=== PATIENT | female | born 1990 | race African-American/Black ===

== ENCOUNTER 2017-02-18 10:11 | Inpatient (IN) ==
--- NOTE | 2017-02-18 12:54 | Ultrasound Report ---
US OB biophys profile Indication: Evaluation of amniotic fluid index and position. History of deceleration. Comparison: None. Technique: Using transcutaneous probe, routine biophysical profile was performed. Ultrasound images were captured and stored. Biophysical variables including breathing, gross body movements, tone, and qualitative amniotic fluid volume scored. Findings: Each of the above physical variables were graded at +2 for a total of +8. The fetus lies in vertex position. Heart activity is present with a heart rate of 126 beats per minute. The amniotic fluid index is 11.22cm. Impression: 1. biophysical profile score 8; normal with low risk for chronic asphyxia. 02/18/2017 12:50 PM PROCEDURE INTERPRETED AT [facility] DEPARTMENT OF RADIOLOGY Final Report Signed by: Dr. Ambrose Thakkar
[2017-02-18] MEDS ORDERED: ONDANSETRON 4 MG/2 ML VIAL IV PRN (19:08)
[2017-02-18] MEDS ORDERED: BUTORPHANOL 1 MG/ML VIAL IV PRN (19:08)
[2017-02-18 19:36] LABS: Basophils % 0.1 % (0.0-0.8); Hematocrit 37.5 VOL% (35.7-47.0); Hemoglobin 12.9 GM/DL (12.0-16.0); Immature Granulocytes % 0.4 %; Immature Granulocytes Absolute 0.04 #; Lymphocytes # 1.2 10*3/uL (1.4-4.0); Lymphocytes % 12.3 % (21.3-54.2); Mean Corpuscular HGB Conc 34.4 GM/DL (32-36); Mean Corpuscular Hemoglobin 30 PG (27-34); Mean Corpuscular Volume 87.6 FL (87-102); Mean Platelet Volume 10.4 FL (9.6-12.0); Monocytes # 0.3 10*3/uL (0.11-0.8); Monocytes % 2.8 % (1.7-12.7); Neutrophils # 8.5 10*3/uL (1.4-7.4); Neutrophils % 84.4 % (38.7-73.9); Platelet Count 200 T/CUMM (130-400); Red Blood Count 4.28 MC/CUMM (3.8-5.5); Red Cell Distribution Width 13.3 % (9.3-17.3); White Blood Count 10.1 T/CUMM (4-12)
[2017-02-18] MEDS ORDERED: hydrOXYzine HCL 25 MG/1 ML VIAL IM PRN (19:37)
[2017-02-18] MEDS ORDERED: diphenhydrAMINE 50 MG/1 ML VIAL IV PRN ×2 (19:37)
[2017-02-18] MEDS ORDERED: ONDANSETRON 4 MG/2 ML VIAL IV ONE (19:37)
[2017-02-18] MEDS ORDERED: PROMETHAZINE 25 MG/1 ML VIAL IM ONE (19:37)
[2017-02-18] MEDS ORDERED: ePHEDrine 50 MG/ML AMP IV PRN (19:37)
[2017-02-18] MEDS ORDERED: fentaNYL 2 MCG/ROPIV 0.2% EPID 150 ML EPIDURAL SCH (19:37)
[2017-02-18] MEDS ORDERED: FAMOTIDINE 20 MG/2 ML VIAL IV ONE (19:41)
[2017-02-18] MEDS ORDERED: CITRIC ACID/SODIUM CITRATE 30 ML UDCUP PO ONE (19:41)
[2017-02-18] MEDS: LACTATED RINGERS 1,000 ML IV SCH ×2 (19:51→21:30)
[2017-02-18] MEDS ORDERED: BUTORPHANOL 2 MG/ML VIAL IV PRN (19:52)
--- NOTE | 2017-02-18 19:58 | OB/GYN History & Physical ---
History of Present Illness Chief complaint: contractions History of present illness: Ms. Angeles is a 26 year old female at 38 weeks who came in this morning with contractions and was only fingertip dilated. She was katiuska adn we kept her for observation and she progress to 4 cm and her pain increased . 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 - Antepartum / Post Antepartum Exam Cervix - Dilatation: 4-5 Effacement: 100 Station: -2 Presentation: vertex Heart Rate: cat 2 [place]: every 5 mins - Respiratory Respiratory exam: Absent: accessory muscle use - Cardiovascular Cardiovascular exam: Present: regular rate and rhythm - GI/Abdominal GI/Abdominal exam: Present: other (gravid) - Extremities Exam Extremities exam: Absent: calf tenderness - Neurological Exam Neurological exam: Present: alert, oriented X3 - Psychiatric Psychiatric exam: Present: normal affect Assessment and Plan (1) Status: Acute Assessment and plan: IUP at 38 weeks in active labor . admit to L&D Current Visit: Yes Qualifiers: Weeks of gestation: 38 weeks Qualified Code(s): Z3A.38 - 38 weeks gestation of Results - Labs CBC & BMP: 02/18/17 19:20
[2017-02-18 20:27] LABS: Alanine Aminotransferase 18 U/L (13-56); Albumin 3.2 G/DL (3.4-5.0); Alkaline Phosphatase 73 U/L (45-117); Aspartate Amino Transferase 13 U/L (0-37); Bilirubin,Total < 0.39 MG/DL (0.2-1.0); Blood Urea Nitrogen 6 MG/DL (7-18); Calcium 9.1 MG/DL (8.5-10.1); Glucose 88 MG/DL (74-106); Osmolality,Calculated 273.5 MOS/KG (273-304); Potassium 3.7 MMOL/L (3.5-5.1); Sodium 139 MMOL/L (136-145); Total Protein 7.2 G/DL (6.4-8.3)
[2017-02-18] MEDS ORDERED: OXYTOCIN/LR 20 UNIT/1,000 ML BAG IV SCH (20:30)
[2017-02-18] MEDS ORDERED: LIDOCAINE 1% 50 ML VIAL ONE (23:00)
[2017-02-18] MEDS ORDERED: miSOPROStol 200 MCG TABLET ONE (23:01)
[2017-02-18] MEDS ORDERED: OXYTOCIN/LR 20 UNIT/1,000 ML BAG IV ONE (23:46)
[2017-02-18] MEDS ORDERED: DIPH/TET/ACEL PERT BOOSTER VACCINE 0.5 ML VIAL IM ONE (23:46)
[2017-02-18] MEDS ORDERED: LANOLIN 50% CREAM 0.3 OZ TUBE TOP PRN (23:46)
[2017-02-18] MEDS ORDERED: BENZOCAINE 20%/MENTHOL 0.5% SPRAY 56 GM CAN TOP PRN (23:46)
[2017-02-18] MEDS ORDERED: HYDROCORTISONE 2.5% RECTAL CREAM 30 GM TUBE TOP PRN (23:46)
[2017-02-18] MEDS ORDERED: MEASLES/MUMPS/RUBELLA VACCINE 0.5 ML VIAL SUBCUT ONE (23:46)
[2017-02-18] MEDS ORDERED: ACETAMINOPHEN 325 MG TABLET PO PRN (23:46)
[2017-02-18] MEDS ORDERED: IBUPROFEN 800 MG TABLET PO PRN (23:46)
[2017-02-18] MEDS ORDERED: WITCH HAZEL PADS 100/JAR TOP PRN (23:46)
[2017-02-18] MEDS ORDERED: RHO(D) IMMUNE GLOBULIN 300 MCG SYRINGE IM ONE (23:46)
[2017-02-18] MEDS ORDERED: BISACODYL 10 MG SUPP RECTAL PRN (23:46)
[2017-02-18] MEDS ORDERED: oxyCODONE/ACETAMINOPHEN 5-325 MG TABLET PO PRN (23:46)
--- NOTE | 2017-02-18 23:48 | Operative Note ---
Date of procedure: 02/18/17 Pre-op diagnosis: IUP at 38 weeks in labor Post-op diagnosis: same Procedure: The patient presented and progressed to completely dilated and she pushed and a right medial lateral episiotomy was performed and once that was performed the delivered in OP presentation which with a loose body cord which was easily manipulated with the delivery of the . Apgars were 8 and 9 weight was 5 lbs. 11 oz. and it was an male. The right medial lateral episiotomy was repaired in the usual fashion without any complications. The placenta delivered spontaneously. Sponge lap and instrument counts were correct 3. Anesthesia: epidural Surgeon / Physician: Rochelle Allen Estimated blood loss: other (200) Condition: stable Disposition: post procedure unit Results - Labs CBC & BMP: 02/18/17 19:20 02/18/17 19:20 Discharge Plan - Discharge Medications No Action Vits #90/Iron Fum/FA [ Formula Tablet] 1 each PO DAILY - Follow Up or Referral - Forms/Instructions
[2017-02-19 00:49] LABS: Apearance,Urine Slightly Hazy (Clear); Bilirubin,Urine Negative (Negative); Blood, Urine Small mg/dL (Negative); Glucose,Urine (UA) Negative (Negative); Hyaline Casts,Urine 6 /LPF (0-3); Ketones,Urine 80 mg/dL (Negative); Mucus,Urine Moderate /LPF (Occasional); Nitrite,Urine Negative (Negative); Protein,Urine 30 MG/DL; RBC,Urine 4 /HPF (0-4); Squamous Epithelial Cell,Urine Occasional /HPF (0-10); Urine Color Yellow (Yellow); Urine Specific Gravity 1.024 (1.001-1.035); Urine Urobilinogen < 2.0 EU/DL (0.2-1.0); WBC,Urine <1 /HPF (0-6)
[2017-02-19 07:04] LABS: Basophils % 0.1 % (0.0-0.8); Hematocrit 34.8 VOL% (35.7-47.0); Hemoglobin 11.9 GM/DL (12.0-16.0); Immature Granulocytes % 0.4 %; Immature Granulocytes Absolute 0.07 #; Mean Corpuscular HGB Conc 34.2 GM/DL (32-36); Mean Corpuscular Hemoglobin 30 PG (27-34); Mean Corpuscular Volume 88.8 FL (87-102); Mean Platelet Volume 10.6 FL (9.6-12.0); Monocytes # 1.5 10*3/uL (0.11-0.8); Monocytes % 7.9 % (1.7-12.7); Neutrophils # 14.9 10*3/uL (1.4-7.4); Neutrophils % 80.6 % (38.7-73.9); Platelet Count 186 T/CUMM (130-400); Red Blood Count 3.92 MC/CUMM (3.8-5.5); Red Cell Distribution Width 13.2 % (9.3-17.3); White Blood Count 18.5 T/CUMM (4-12)
[2017-02-19] MEDS: DOCUSATE SODIUM 100 MG CAPSULE PO SCH ×2 (08:32→20:45)
[2017-02-19] MEDS: oxyCODONE/ACETAMINOPHEN 5-325 MG TABLET PO PRN ×2 (08:33→20:45)
--- NOTE | 2017-02-19 11:29 | OB/GYN Progress Note ---
Assessment and Plan (1) Status: Acute Assessment and plan: IUP at 38 weeks in active labor . admit to L&D Current Visit: Yes Qualifiers: Weeks of gestation: 38 weeks Qualified Code(s): Z3A.38 - 38 weeks gestation of (2) Vaginal delivery Status: Acute Assessment and plan: PPD#1 s/p SAVD doing well . 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 Her bleeding is under control as well as her pain. 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 Absent: guarding, rebound - Extremities Exam Extremities exam: Absent: calf tenderness - Neurological Exam Neurological exam: Present: alert, oriented X3 - Psychiatric Psychiatric exam: Present: normal affect, normal mood Results - Labs CBC & BMP: 02/19/17 06:33 02/18/17 19:20
[2017-02-20 07:03] LABS: Basophils % 0.2 % (0.0-0.8); Eosinophils # 0.1 10*3/uL (0.0-0.87); Eosinophils % 0.5 % (0.00-10.9); Hematocrit 35.8 VOL% (35.7-47.0); Immature Granulocytes % 0.4 %; Immature Granulocytes Absolute 0.05 #; Lymphocytes # 2.6 10*3/uL (1.4-4.0); Lymphocytes % 21.5 % (21.3-54.2); Mean Corpuscular HGB Conc 33.5 GM/DL (32-36); Mean Corpuscular Hemoglobin 30 PG (27-34); Mean Corpuscular Volume 88.4 FL (87-102); Mean Platelet Volume 10.7 FL (9.6-12.0); Monocytes # 0.8 10*3/uL (0.11-0.8); Monocytes % 6.3 % (1.7-12.7); Neutrophils # 8.5 10*3/uL (1.4-7.4); Neutrophils % 71.1 % (38.7-73.9); Platelet Count 194 T/CUMM (130-400); Red Blood Count 4.05 MC/CUMM (3.8-5.5); Red Cell Distribution Width 13.4 % (9.3-17.3)
[2017-02-20 08:04] VITALS: BP 127/78
--- NOTE | 2017-02-20 09:13 | Anesthesia Post-Op ---
Anesthesia Post OP - Post Ansesthetic Evaluation Patient seen in post op: Yes Resp: within normal limits CV: within normal limits Mental: within normal limits Temp: within normal limits [id number]: within normal limits Nausea and Vomiting: within normal limits Pain: within normal limits
[2017-02-20] MEDS: DOCUSATE SODIUM 100 MG CAPSULE PO SCH (09:26)
--- NOTE | 2017-02-20 10:39 | OB/GYN Progress Note ---
Assessment and Plan (1) Vaginal delivery Status: Acute Assessment and plan: PPD#2 s/p SAVD doing well . 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 - Constitutional Vitals: Vital Signs Temp Pulse Resp BP Pulse Ox 02/20/17 07:30 97.2 F L 63 18 127/78 100 02/20/17 03:57 97.6 F 63 18 128/61 99 02/20/17 02:00 18 02/19/17 23:57 98.7 F 64 18 141/69 97 02/19/17 22:05 66 142/78 02/19/17 20:02 98.3 F 78 20 151/83 98 02/19/17 17:15 97.2 F L 81 18 148/81 02/19/17 16:00 97.8 F 90 18 130/87 02/19/17 12:00 98.2 F 77 124/58 General appearance: normal weight, no acute distress - Respiratory Respiratory exam: Absent: accessory muscle use - Cardiovascular Cardiovascular exam: Present: regular rate and rhythm - GI/Abdominal GI/Abdominal exam: Absent: guarding, rebound - Extremities Exam Extremities exam: Absent: calf tenderness - Neurological Exam Neurological exam: Present: alert, oriented X3 - Psychiatric Psychiatric exam: Present: normal affect Results - Labs CBC & BMP: 02/20/17 06:26 02/18/17 19:20
--- NOTE | 2017-02-20 11:34 | Discharge Summary ---
Hospital Course - Hospital Course Hospital Course: The pt presented and delivered vaginally without complications. She was ready to go home on PPD#2 with her baby Diagnosis - Discharge Diagnosis (1) Vaginal delivery Status: Acute Specialty Discharge - Follow Up or Referrals Follow up with: Christofer Ruiz DO [Physician] - 1 Month Discharge Plan - Discharge Data Disposition: Disch To Home/Self Care Condition at Discharge: Stable Discharge Diet: advance to your usual diet Activity: resume usual activities as tolerated Hygiene: may shower Weight Bearing at Discharge: full weight bearing Driving: no restrictions Contact your physician if you experience:: fever over 101, Difficulty voiding, Redness or swelling, Nausea/Vomiting, Shortness of breath, Bleeding, pain uncontrolled by pain medications - Discharge Medications No Action Vits #90/Iron Fum/FA [ Formula Tablet] 1 each PO DAILY - Follow Up or Referral - Forms/Instructions Exam - Constitutional Vitals: Period Temp Pulse Resp BP Sys/[place]arez Pulse Ox Last 24 Hr 97.2 F-98.7 F 63-90 18-20 124-151/58-87 97-100 Discharge Results Labs on day of discharge: Labs from last 24 hours 02/20/17 06:26 WBC 12.0 D RBC 4.05 Hgb 12.0 Hct 35.8 MCV 88.4 MCH 30 MCHC 33.5 RDW 13.4 Plt Count 194 MPV 10.7 Neut % (Auto) 71.1 Lymph % (Auto) 21.5 Divide % (Auto) 6.3 Eos % (Auto) 0.5 Baso % (Auto) 0.2 Neut # (Auto) 8.5 H Lymph # (Auto) 2.6 Divide # (Auto) 0.8 Eos # (Auto) 0.1 Baso # (Auto) 0.0 Immature Gran % 0.4 Nucleated RBC % 0.0 Immature Gran # 0.05 Nucleated RBCs # 0.00 DS: Provider Date of admission: 02/18/17 19:08 Primary care physician: Sariah Edwards Attending physician on admission: Rochelle Bowles- Consults: 02/18/17 19:08 Consult to Anesthesiology [CONS] Routine Consulting Provider: Reason for Anesthesiology: Epidural Consult Comment: Epidural for pain managment 02/18/17 23:46 Consult to Manager Research Development [CONS] Routine Consult Manager Research Development: Breast Feeding Discharging clinician: Rochelle Bowles- Expected date of discharge: 02/20/17
== END 2017-02-20 12:53 | disposition home or self-care (01) | DRG 775 ==
LOC: N.LDOUT 10:11 → N.LD 10:13 → N.OB 02-19 17:15
PROVIDERS: ADMIT Obstetrics & Gynecology; ATTEND Obstetrics & Gynecology